=== PATIENT | female | born 1960 | race Caucasian/White ===

== ENCOUNTER 2024-08-25 | Emergency (ER) | payer OTHER ==
[~2024-08-25] VITALS: Ht 162.6 cm; Wt 77.6 kg
[2024-08-25] MEDS ORDERED: LIDOCAINE HCL 1% 20 ML VIAL ONE (00:26)
[2024-08-25] MEDS: LIDOCAINE HCL 1% 20 ML VIAL IJ ONE (00:27)
[2024-08-25] MEDS: IV NORMAL SALINE 500 ML BAG IV ONE (00:27)
[2024-08-25] MEDS: TDAP DIPH,PERTUSS,TET VAC/PF 0.5 ML DISP.SYRIN IM ONE (00:46)
[2024-08-25 00:50] LABS: BASOPHILS % (AUTO) 0.5 % (0.0-2.0); EOSINOPHILS % (AUTO) 0.1 % (0.0-7.0); HEMATOCRIT 39.2 % (31.2-41.9); HEMOGLOBIN 13.1 g/dL (10.9-14.3); LYMPHOCYTES % (AUTO) 13.4 % (20.5-51.5); MEAN CORPUSCULAR HEMOGLOBIN 30.7 uug (24.7-32.8); MEAN CORPUSCULAR HGB CONC 33 g/dL (32.3-35.6); MONOCYTES # (AUTO) 0.6 K/uL (0.1-1.30); MONOCYTES % (AUTO) 8.2 % (0.0-11.0); NEUTROPHILS # (AUTO) 5.7 K/uL (1.8-8.9); NEUTROPHILS % (AUTO) 77.8 % (38.5-71.5); PLATELET COUNT (AUTO) 190 K/uL (179-408); RED BLOOD CELL COUNT(AUTO) 4.26 MIL/uL (3.63-4.92); RED CELL DISTRIBUTION WIDTH 14.1 % (12.3-17.7); WHITE BLOOD COUNT (AUTO) 7.3 K/uL (3.8-11.8)
[2024-08-25 00:59] LABS: ALBUMIN 3.3 g/dL (3.4-5.0); BILIRUBIN,TOTAL 0.8 mg/dL (0.2-1.0); CALCIUM 8.6 mg/dL (8.5-10.1); CREATININE 0.9 mg/dL (0.6-1.3); MAGNESIUM 2.4 mg/dL (1.8-2.4); POTASSIUM 3.4 mmol/L (3.5-5.1); TOTAL PROTEIN, SERUM 7.1 g/dL (6.4-8.2)
[2024-08-25 01:04] LABS: DIFFERENTIAL COMMENT 1
[2024-08-25 01:05] LABS: C-REACTIVE PROTEIN 2.13 mg/dL (0.00-0.30)
[2024-08-25] MEDS ORDERED: CEPH500C2 PO (01:24)
[2024-08-25 02:00] VITALS: BP 113/51; O2SAT 99
== END 2024-08-25 02:01 | disposition home or self-care (01) ==
LOC: ER
DX: S01.511A Laceration without foreign body of lip, initial encounter (principal); R53.1 Weakness; E78.5 Hyperlipidemia, unspecified; G43.909 Migraine, unspecified, not intractable, without status migrainosus; R50.9 Fever, unspecified; W18.39XA Other fall on same level, initial encounter; Y93.89 Activity, other specified; Y92.89 Other specified places as the place of occurrence of the external cause; Y99.8 Other external cause status
CPT/HCPCS: 36415; 40650; 71045; 80053; 83735; 84145; 85025; 86140; 90471; 90715; 93005; 96360; 99285; J3490; J7040; A4606; A4663